=== PATIENT | male | born 1945 | race Hispanic/Latino ===

== ENCOUNTER 2019-01-16 14:47 | Inpatient (IN) | payer MEDICARE ==
[2019-01-16 15:08] VITALS: BMI 30.7
[2019-01-16] MEDS ORDERED: Sodium Chloride 0.9% 1,000 ML IV STA (15:36)
--- NOTE | 2019-01-16 15:44 | ED PDOC ---
Arrival/HPI - General Chief Complaint: Weakness/Neurological Deficit Historian: Patient - History of Present Illness Narrative History of Present Illness (Text): 01/16/19 15:34 A 73 year old male, whose past medical history includes hypertension and bronc hitis, presents to the ED complaining of worsening weakness for the past day. Patient reports he was eating a BLT sandwich yesterday when he started feeling weakness with associated diaphoresis, nausea and shakiness. Patient notes symptoms worsen upon standing up and improve when laying down. Patient also notes associated black stools and loss of appetite, but states that he ate breakfast today. Patient denies any fevers, headache, chest pain, shortness of breath, dyspnea on exertion, cough, abdominal pain, vomiting, diarrhea, back pain, neck pain, or any other complaints. Time/Duration: 24 hours Symptom Onset: Gradual Symptom Course: Worsening Activities at Onset: Light Context: Home Past Medical History - Provider Review Nursing Documentation Reviewed: Yes Primary Care Provider: Gustavo Patricia MD - Infectious Disease Hx of Infectious Diseases: None - Cardiac Hx Hypertension: Yes Hx Pacemaker: No - Pulmonary Hx Bronchitis: Yes - Neurological Hx Paralysis: No - Hematological/Oncological Hx Blood Transfusions: No - Musculoskeletal/Rheumatological Hx Musculoskeletal Disorders: No - Psychiatric Hx Emotional Abuse: No Hx Physical Abuse: No Hx Substance Use: No - Anesthesia Hx Anesthesia Reactions: No Hx Malignant Hyperthermia: No - Suicidal Assessment Feels Threatened In Home Enviroment: No Family/Social History - Physician Review Nursing Documentation Reviewed: Yes Family/Social History: Unknown Family HX Smoking Status: Unknown If Ever Smoked Hx Alcohol Use: Yes (ON OCCASION) Hx Substance Use: No Allergies/Home Meds Allergies/Adverse Reactions: Allergies No Known Allergies Allergy (Verified 01/16/19 14:58) Home Medications: Home Meds Medication Instructions Recorded Confirmed Garlic [Odor Free Garlic-X] 1 tab PO DAILY 03/07/16 01/16/19 Lecithin 1,200 mg PO DAILY 03/07/16 01/16/19 Losartan [Cozaar] 50 mg PO QAM 03/07/16 01/16/19 Metoprolol Succinate XL [Toprol XL] 50 mg PO QAM 03/07/16 01/16/19 Multivitamin [One Daily] 1 tab PO DAILY 03/07/16 01/16/19 [place]-3 Fatty Acids/Fish Oil 1 cap PO DAILY 03/07/16 01/16/19 [[place] 3 Fish Oil Softgel] Vitamin E 400 iu PO DAILY 03/07/16 01/16/19 Montelukast [Singulair] 10 mg PO DAILY 01/16/19 01/16/19 Review of Systems - Review of Systems Constitutional: absent: Fevers Eyes: absent: Vision Changes ENT: absent: Hearing Changes Respiratory: absent: SOB, Cough Cardiovascular: absent: Chest Pain Gastrointestinal: Stool Changes (Black stool), Nausea. absent: Abdominal Pain, Vomiting, Hematemesis Genitourinary Male: absent: Dysuria, Frequency Musculoskeletal: absent: Back Pain, Neck Pain Skin: absent: Rash Neurological: Dizziness. absent: Headache, Focal Weakness Endocrine: Diaphoresis Hemo/Lymphatic: absent: Adenopathy Psychiatric: absent: Anxiety, Depression Physical Exam - Physical Exam Narrative Physical Exam (Text): 01/16/19 15:46 Head: Atraumatic. Normocephalic. Eyes: PERRL. EOMI. Conjunctivae are pale. ENT: Mucous membranes are moist. Oropharynx is clear and symmetric. Neck: Supple. Full ROM. No JVD. No lymphadenopathy. Cardiovascular: Tachycardic. Systolic murmur. Distal pulses are 2+ and sy mmetric. Pulmonary/Chest: No evidence of respiratory distress. Clear to auscultation bilaterally. No wheezing, rales or rhonchi. Abdominal: Soft and non-distended. There is no tenderness. No rebound, guarding, or rigidity. No organomegaly. Good bowel sounds. No pulsatile masses. Back: No CVA tenderness. Rectal: dark melena Extremities: No edema. No cyanosis. No clubbing. Full range of motion in all extremities. No calf tenderness. Skin: Skin is pale. Neurological: Alert, awake, and oriented to person, place, time, and situation. Normal speech. Tremulous at times. Motor and sensory exam intact. Psychiatric: Good eye contact. Normal interaction, affect, and behavior. Vital Signs Reviewed: Yes Vital Signs Temp Pulse Resp BP Pulse Ox 01/16/19 15:03 98.5 F 106 H 18 122/66 99 Temperature: Afebrile Blood Pressure: Normal Pulse: Tachycardic Respiratory Rate: Normal Appearance: Positive for: Non-Toxic Pain Distress: Mild Mental Status: Positive for: Alert and Oriented X 3 Medical Decision Making ED Course and Treatment: 01/16/19 15:46 Impression: A 73 year old male who presents to the ED complaining of weakness since yesterday. Differential Diagnosis included but are not limited to: gi bleed, ulcer, colitis, not limited to this. Plan: -- VBG -- EKG -- Labs -- Chest X-Ray -- IV Fluids -- Protonix -- Urinalysis -- Reassess and disposition Progress Notes: 01/16/19 17:41 Patient with low hgb. Melenotic stool. No abdominal pain. After iv fluid bolus, blood pressure improved, heart rate improved. Hgb 8.2. Discussed labs with Dr. Livia Patricia, who states recent Hgb this year was 12. Suspect active gi bleed, requested ICU consultation. Dr. Tracey Leyva evaluated patient in emergency department , at this time he is cleared by submarine diver to telemetry bed. Currently he denies any chest pain or shortness of breath. He is not tachycardic or hypotensive. Blood trasnfusion ordered. WBC elevated although afebrile. No neuro deficits noted. Protonix ordered. I discussed case with Dr. Theresa North, GI, is aware of presentation. Consent obtained for blood transfusion obtained after risks/benefits reviewed. Reassessment Condition: Re-examined, Improving,but remains with symptoms - Critical Care Critical Care Minutes: 30 minutes - Scribe Statement The provider has reviewed the documentation as recorded by the Hiram Murphy Provider Scribe Attestation: All medical record entries made by the Scribe were at my direction and personally dictated by me. I have reviewed the chart and agree that the record accurately reflects my personal performance of the history, physical exam, medical decision making, and the department course for this patient. I have also personally directed, reviewed, and agree with the discharge instructions and disposition. Disposition/Present on Arrival - Present on Arrival Any Indicators Present on Arrival: No History of DVT/PE: No History of Uncontrolled Diabetes: No Urinary Catheter: No History of Decub. Ulcer: No History Surgical Site Infection Following: None - Disposition Have Diagnosis and Disposition been Completed?: Yes Diagnosis: Gastrointestinal bleeding, Dizziness, Leukocytosis Disposition: HOSPITALIZED Disposition Time: 16:00 Patient Plan: Admission, Telemetry Condition: SERIOUS
[2019-01-16 15:52] LABS: VENOUS BLOOD GAS BASE EXCESS -2.5 mmol/L (0.0-2.0); VENOUS BLOOD GAS PO2 33 mm/Hg (30-55); VENOUS BLOOD PH 7.37 (7.32-7.43)
[2019-01-16 16:00] LABS: BASO # 0.03 K/mm3 (0.0-2.0); BASO % 0.2 % (0.0-3.0); EOS % 0.3 % (1.5-5.0); HEMOGLOBIN 8.2 g/dL (14.0-18.0); LYMPH # 1.5 (1.2-3.4); LYMPH % 10.1 % (22.0-35.0); MEAN CELL VOLUME 96.2 fl (80.0-105.0); MEAN CORPUSCULAR HEMOGLOBIN 31.4 pg (25.0-35.0); MEAN CORPUSCULAR HGB CONC 32.7 g/dl (31.0-37.0); MEAN PLATELET VOLUME 9.3 fl (7.0-11.0); MONO # 1.1 (0.1-0.6); MONO % 6.9 % (1.0-6.0); RBC 2.61 10^6/uL (3.5-6.1); RED CELL DISTRIBUTION WIDTH 15.2 % (11.5-14.5); WHITE BLOOD COUNT 15.2 10^3/uL (4.5-11.0)
[2019-01-16 16:09] LABS: INR 1.21; PARTIAL THROMBOPLASTIN TIME 25.8 Seconds (26.9-38.3); PROTHROMBIN TIME 13.4 SECONDS (9.4-12.5)
[2019-01-16 16:13] LABS: ALB/GLOB RATIO 1.5 (1.1-1.8); ALBUMIN 3.6 g/dL (3.0-4.8); ALT/SGPT 21 U/L (7-56); AST/SGOT 21 U/L (17-59); BLOOD UREA NITROGEN 78 mg/dL (7-21); CALCIUM 9.1 mg/dL (8.4-10.5); GFR NON-AFRICAN AMERICAN 50; LIPASE 221 U/L (23-300)
[2019-01-16 16:21] LABS: TROPONIN I < 0.01 ng/mL
--- NOTE | 2019-01-16 17:12 | CP.PCM.CON ---
History of Present Illness - History of Present Illness History of Present Illness: MICU CONSULT Note HPI Patient is 73yo male with PMhx of HTN on Losartan, Bronchitis, Gout, NSAID use, presented to the ER with dizziness, and melena x 1 day. Pt notes symptoms began yesterday, and he has had 2 melena BM. Pt denies fever, chills, cough, CP, BRBPR. Pt did take ASA once this past week. Denies Plavix, DOAC, Warfarin use. No other constitutional symptoms. Labs, iamging, chart reviewed. HH 8.2, baseline not available. Last BP 122/60, P 80 PMhx HTN, Gout, Bronchitis PSHx NONE Meds as per EMR FHx NC Social Denies smoking, etoh, drug use Allergies NKDA ROS as above Review of Systems - Review of Systems Review of Systems: as per HPI Past Patient History - Infectious Disease Hx of Infectious Diseases: None - Past Social History Smoking Status: Unknown If Ever Smoked - CARDIAC Hx Hypertension: Yes Hx Pacemaker: No - PULMONARY Hx Bronchitis: Yes - NEUROLOGICAL Hx Paralysis: No - HEMATOLOGICAL/ONCOLOGICAL Hx Blood Transfusions: No - MUSCULOSKELETAL/RHEUMATOLOGICAL Hx Musculoskeletal Disorders: No - PSYCHIATRIC Hx Emotional Abuse: No Hx Physical Abuse: No Hx Substance Use: No - SURGICAL HISTORY Hx Surgeries: Yes - ANESTHESIA Hx Anesthesia Reactions: No Hx Malignant Hyperthermia: No Meds Allergies/Adverse Reactions: Allergies Allergy/AdvReac Type Severity Reaction Status Date / Time No Known Allergies Allergy Verified 01/16/19 14:58 Physical Exam - Constitutional Appears: Non-toxic, No Acute Distress - Head Exam Head Exam: NORMAL INSPECTION - Eye Exam Eye Exam: Normal appearance - ENT Exam ENT Exam: Mucous Membranes Moist - Neck Exam Neck exam: Positive for: Full Rom - Respiratory Exam Respiratory Exam: Clear to Auscultation Bilateral, NORMAL BREATHING PATTERN - Cardiovascular Exam Cardiovascular Exam: REGULAR RHYTHM, +S1, +S2 - GI/Abdominal Exam GI & Abdominal Exam: Normal Bowel Sounds, Soft - Extremities Exam Extremities exam: Positive for: normal inspection - Neurological Exam Neurological exam: Alert, Oriented x3 - Psychiatric Exam Psychiatric exam: Normal Affect - Skin Skin Exam: Normal Color, Warm Results - Vital Signs Recent Vital Signs: Last Vital Signs Temp 98.5 F 01/16/19 15:03 Pulse 106 H 01/16/19 15:03 Resp 18 01/16/19 15:03 BP 122/66 01/16/19 15:03 Pulse Ox 99 01/16/19 15:03 - Labs Result Diagrams: 01/16/19 15:54 01/16/19 15:54 Labs: Laboratory Results - last 24 hr 01/16/19 01/16/19 01/16/19 15:40 15:54 15:54 WBC 15.2 H RBC 2.61 L Hgb 8.2 L Hct 25.1 L MCV 96.2 MCH 31.4 MCHC 32.7 RDW 15.2 H Plt Count 245 MPV 9.3 Neut % (Auto) 82.5 H Lymph % (Auto) 10.1 L Brewster % (Auto) 6.9 H Eos % (Auto) 0.3 L Baso % (Auto) 0.2 Lymph # (Auto) 1.5 Brewster # (Auto) 1.1 H Eos # (Auto) 0.0 Baso # (Auto) 0.03 Absolute Neuts (auto) 12.57 H PT 13.4 H INR 1.21 APTT 25.8 L pO2 33 VBG pH 7.37 VBG pCO2 39.0 L VBG HCO3 22.5 VBG Total CO2 23.7 VBG O2 Sat (Calc) 54.8 VBG Base Excess -2.5 L VBG Potassium 5.0 Sodium 140.0 Chloride 112.0 H Glucose 114 H Lactate 2.0 FiO2 21.0 Potassium Carbon Dioxide Anion Gap BUN Creatinine Est GFR ( Amer) Est GFR (Non-Af Amer) Random Glucose Calcium Magnesium Total Bilirubin AST ALT Alkaline Phosphatase Lactate Dehydrogenase Total Creatine Kinase Troponin I Total Protein Albumin Globulin Albumin/Globulin Ratio Lipase Venous Blood Potassium 5.0 01/16/19 15:54 WBC RBC Hgb Hct MCV MCH MCHC RDW Plt Count MPV Neut % (Auto) Lymph % (Auto) Brewster % (Auto) Eos % (Auto) Baso % (Auto) Lymph # (Auto) Brewster # (Auto) Eos # (Auto) Baso # (Auto) Absolute Neuts (auto) PT INR APTT pO2 VBG pH VBG pCO2 VBG HCO3 VBG Total CO2 VBG O2 Sat (Calc) VBG Base Excess VBG Potassium Sodium 141 Chloride 109 H Glucose Lactate FiO2 Potassium 5.0 Carbon Dioxide 22 Anion Gap 15 BUN 78 H Creatinine 1.4 Est GFR ( Amer) > 60 Est GFR (Non-Af Amer) 50 Random Glucose 112 H Calcium 9.1 Magnesium 2.2 Total Bilirubin 0.2 AST 21 ALT 21 Alkaline Phosphatase 44 Lactate Dehydrogenase 375 Total Creatine Kinase 88 Troponin I < 0.01 Total Protein 6.1 Albumin 3.6 Globulin 2.5 Albumin/Globulin Ratio 1.5 Lipase 221 Venous Blood Potassium Assessment & Plan - Assessment and Plan (Free Text) Assessment: 73yo male a/w melena, Anemia, elevated BUN Melena/GIB Anemia HTN NSAID use - currently afebrile, HD stable, SBP ranging 110-130, HR 80s, in NAD - HH 8.2, no baseline comparison available - BUN elevated likely 2/2 dehydration and GIB - lactate is normal, 2.0 - clinically stable - platelets INR normal Recommend: - NPO - PPI drip - GI eval - Q6hr CBC - transfuse if HH<7 - maintain 2 large bore PIVs - HOLD BP meds - IVF, NS - obtain UA, Ulytes - DVT ppx, SCDs - Does not require ICU care at this time, re-consult as needed
[2019-01-16 18:50] LABS: URINE APPEARANCE CLEAR (CLEAR); URINE BILIRUBIN NEGATIVE (NEGATIVE); URINE BLOOD NEGATIVE (NEGATIVE); URINE COLOR LIGHT YELLOW (YELLOW); URINE GLUCOSE (UA) NEGATIVE (NEGATIVE); URINE LEUKOCYTE ESTERASE NEGATIVE Leu/uL (NEGATIVE); URINE PROTEIN NEGATIVE mg/dL (<30 mg/dL); URINE UROBILINOGEN 0.2 E.U./dL (<1 E.U./dL)
--- NOTE | 2019-01-16 18:59 | RAD ---
Date of service: 01/16/2019 HISTORY: Weakness. COMPARISON: 01/09/2018 FINDINGS: LUNGS: No active pulmonary disease. PLEURA: No significant pleural effusion identified, no pneumothorax apparent. CARDIOVASCULAR: No atherosclerotic calcification present No radiographic findings to suggest acute or significant cardiovascular disease. OSSEOUS STRUCTURES: No significant abnormalities. VISUALIZED UPPER ABDOMEN: Normal. OTHER FINDINGS: None. IMPRESSION: No active disease. No significant interval change compared to the prior examination(s).
[2019-01-16 20:09] LABS: VENOUS BLOOD GAS BASE EXCESS -5.3 mmol/L (0.0-2.0); VENOUS BLOOD GAS PO2 159 mm/Hg (30-55); VENOUS BLOOD PH 7.26 (7.32-7.43)
--- NOTE | 2019-01-16 22:07 | CARD ---
APPROVED REPORT Date of service: 01/16/2019 EKG Measurement Heart [id number] <Conclusion> Sinus tachycardia NDSTT abnormalities Otherwise normal ECG
[2019-01-16] MEDS ORDERED: Pneumococcal 23-Valent Vaccine IM ONE (23:18)
--- NOTE | 2019-01-17 03:01 | HP ---
DATE OF EXAM: 01/16/2019 HISTORY OF PRESENT ILLNESS: The patient is a 73-year-old male who presented to the office with a chief complaint of not feeling well and low blood pressure. He also mentioned that he had some black stools. On physical examination, the patient appeared to be anemic and he was sent to [facility] for a stat CBC. This showed that the patient is effectively anemic with a hemoglobin of 8.2. He was then admitted to the hospital for what appears to be an upper GI bleed. PAST MEDICAL HISTORY: Unremarkable for high blood pressure. FAMILY HISTORY: Noncontributory. SOCIAL HISTORY: The patient does not smoke or use illicit drugs. He does imbibe alcohol on occasion. ALLERGIES: NO KNOWN ALLERGIES. PHYSICAL EXAMINATION: VITAL SIGNS: Temperature of 98.5, pulse rate of 106, blood pressure 122/66, respiratory rate of 18 with an O2 saturation of 99% on room air. HEENT: PERRLA, EOMI. The sclerae are pale bilaterally. NECK: Supple with no bruits. HEART: Regular rate and rhythm. ABDOMEN: Soft, nontender. There is no organomegaly. No pain on palpation. EXTREMITIES: Show no deformities and no edema. There is a full range of motion. NEUROLOGICAL: There are no focal motor deficits. LABORATORY DATA: WBCs are 15.2, hemoglobin 8.2, hematocrit of 25.1. Of note, 6 months ago, the hemoglobin was in the 13 range. Chemistry is entirely within normal limits with the exception of a chloride of 109, a BUN of 78, and a creatinine of 1.4, which seems to indicate that this will be upper GI gastric bleed, and random glucose of 112. The patient was admitted. He will be transfused. Dr. North of GI will be consulted. IMPRESSION: At the time of admission: 1. Upper gastrointestinal bleed. 2. Anemia secondary to upper gastrointestinal bleed. 3. Hypertension. Quinten Patricia MD
[2019-01-17] MEDS: Sodium Chloride 0.9% 1,000 ML IV SCH (10:04)
--- NOTE | 2019-01-17 13:29 | PN ---
SUBJECTIVE: The patient was seen and examined at bedside on the telemetry jang. No acute events overnight. He is s/p transfusion of 2 units of PRBCs with no complications noted. He denies further bowel movements since admission and overall offers no complaints. OBJECTIVE: VITAL SIGNS: Temperature 98.6, pulse 95, blood pressure 168/70, respiratory rate 18, oxygen saturation 99% on 2 liters nasal cannula. GENERAL: No apparent distress. HEENT: PERRL, EOMI. No scleral icterus. Mild conjunctival pallor is noted. NECK: No JVD. No bruits. LUNGS: Clear to auscultation. CARDIOVASCULAR: Regular rate and rhythm. Normal S1 and S2. No murmurs. ABDOMEN: Normoactive bowel sounds, soft, nondistended, tender to palpation to epigastrium with voluntary guarding without rigidity. EXTREMITIES: No edema. NEUROLOGIC: Awake, alert and oriented x 3. No focal motor deficits. LABORATORY DATA: Morning labs are pending. ASSESSMENT: The patient is a 73-year-old man with a past medical history of hypertension who for evaluation of a several day history of malaise, fatigue, decreased exercise tolerance and melena and was admitted for management of symptomatic anemia suspected secondary to upper GI bleed. PLAN: 1. Symptomatic anemia, likely secondary to upper GI bleed. The patient is s/p transfusion of 2 units of PRBCs. A post-transfusion CBC is pending. GI evaluation with Dr. North is pending. Continue Protonix 40 mg IV every 12hours and IV fluids. Advance diet as per Dr. North. 2. Suspected upper GI bleed. As above, evaluation with Dr. North is pending. Continue with care as per #1. 3. Hypertension. Blood pressure stable. Resume Toprol XL 50 mg p.o. daily. We will continue to monitor hemodynamics and adjust medications as needed. 4. Prophylaxis. GI prophylaxis not indicated as the patient remains on Protonix. DVT prophylaxis not indicated as the patient remains ambulatory. CODE STATUS: Full Code. Gustavo Patricia MD [facility]
--- NOTE | 2019-01-17 15:34 | CON ---
DATE OF CONSULTATION: 01/17/2019 GASTROENTEROLOGY CONSULTATION REQUESTING PHYSICIAN: Dr. Gustavo Patricia. REASON FOR CONSULTATION: I have been asked to see this 73-year-old male with a history of gout, hypertension, and asthmatic bronchitis, who comes to the hospital with severe weakness, unsteady gait, and 2 days of melena. The patient was taking several Aleve for left knee pain and aspirin for headaches. In the emergency room, the patient was found to be anemic with a hemoglobin of 8.2. He also had a BUN of 78 with a creatinine of 1.4. He has not had any further bowel movements in the hospital. He feels better without any further weakness or dizziness. He denies any abdominal pain, chest pain, shortness of breath, or palpitations. PAST MEDICAL HISTORY: Notable for hypertension, gout, and bronchitis. PAST SURGICAL HISTORY: Unremarkable. SOCIAL HISTORY: He denies cigarette smoking or alcohol use. FAMILY HISTORY: Noncontributory. REVIEW OF SYSTEMS: Fourteen-point review of systems is notable for melena, generalized weakness, and lightheadedness. MEDICATIONS: Medications at home include vitamin E, omega-3, multivitamin, montelukast, metoprolol, losartan,and garlic. PHYSICAL EXAMINATION: GENERAL: Well-developed male, lying in bed, in no acute distress. VITAL SIGNS: Revealed a temperature of 98.6, blood pressure 168/70, heart rate 95. HEENT: Reveals sclerae to be white. Conjunctivae pink. NECK: Supple. CHEST: Revealed lungs to be clear. HEART: Exam reveals regular rate and rhythm. ABDOMEN: Soft, nontender. No mass. EXTREMITIES: Show no edema. LABORATORY DATA: Revealed BUN 78, creatinine 1.4. AST, ALT, alk phos were all normal. Coags reveal PT 13.4, INR 1.21. CBC shows hemoglobin of 8.2, white blood cell count of 15.2. He received 2 units of packed red blood cells. IMPRESSION: A 73-year-old male, comes to the emergency room with severe weakness, lightheadedness, unsteady gait, melena, anemia, all consistent with an upper gastrointestinal bleed, probably related to his aspirin and nonsteroidal use. Symptomatically, he has improved. RECOMMENDATIONS: 1. I will start the patient on clear liquid diet. 2. Follow serial hematocrits. 3. Follow BUN. 4. Continue Protonix 40 mg IV twice a day. As the patient is hemodynamically stable, I will defer an upper endoscopy until Saturday morning unless the patient has signs of active gastrointestinal bleeding. Oswaldo North MD [facility]
[2019-01-18] MEDS: Sodium Chloride 0.9% 1,000 ML IV SCH ×3 (04:50→17:21)
[2019-01-18 07:39] LABS: BASO # 0.04 K/mm3 (0.0-2.0); BASO % 0.4 % (0.0-3.0); EOS # 0.5 (0.0-0.7); EOS % 5.5 % (1.5-5.0); HEMOGLOBIN 8.6 g/dL (14.0-18.0); LYMPH # 2.3 (1.2-3.4); LYMPH % 24.6 % (22.0-35.0); MEAN CELL VOLUME 96.5 fl (80.0-105.0); MEAN CORPUSCULAR HEMOGLOBIN 30.4 pg (25.0-35.0); MEAN CORPUSCULAR HGB CONC 31.5 g/dl (31.0-37.0); MEAN PLATELET VOLUME 9.5 fl (7.0-11.0); MONO % 10.7 % (1.0-6.0); RBC 2.83 10^6/uL (3.5-6.1); RED CELL DISTRIBUTION WIDTH 15.9 % (11.5-14.5); WHITE BLOOD COUNT 9.5 10^3/uL (4.5-11.0)
[2019-01-18 08:57] LABS: ALB/GLOB RATIO 1.5 (1.1-1.8); ALBUMIN 3.8 g/dL (3.0-4.8); ALT/SGPT 30 U/L (7-56); AST/SGOT 34 U/L (17-59); BLOOD UREA NITROGEN 20 mg/dL (7-21); CALCIUM 8.4 mg/dL (8.4-10.5); GFR NON-AFRICAN AMERICAN > 60
[2019-01-18] MEDS: Metoprolol Succinate 50 mg XL Tab PO SCH (09:02)
--- NOTE | 2019-01-18 13:15 | PN ---
DATE: 01/18/2019 SUBJECTIVE: The patient is a 73-year-old white male who is currently in room 271, bed 1. He is lying comfortably in bed and has no complaints at this time. There has been no acute events overnight and review of systems is entirely unremarkable. The patient says he feels quite a bit stronger after the transfusions. LABORATORY DATA: WBC of 9.5, hemoglobin and hematocrit of 8.6 and 27.3. Chemistry; the SMA-23 is entirely unremarkable with the exception of a chloride of 110. PHYSICAL EXAMINATION: VITAL SIGNS: Temperature of 98.1, pulse rate of 72, blood pressure 114/68 with a respiratory rate of 20 and O2 saturation of 96% on room air. HEENT: PERRLA, EOMI. There is no icterus present. The sclera is pink 2 days ago. NECK: Supple with full range of motion. No adenopathy or bruits are appreciated. LUNGS: Clear to auscultation and percussion bilaterally. HEART: With regular rate and rhythm. No murmurs, rubs or gallops. ABDOMEN: Soft, nontender. There is no organomegaly. The bowel sounds are normoactive. EXTREMITIES: Show no deformities or edema. NEUROLOGIC: There are no focal motor deficits. IMPRESSION: At this time is; 1. Anemia secondary to upper gastrointestinal bleeding. 2. Hypertension. 3. Gout. The patient will be scoped tomorrow by Dr. North and further interventions depending on the results of the endoscopy. Quinten Patricia MD
[2019-01-19 07:20] LABS: BASO # 0.04 K/mm3 (0.0-2.0); BASO % 0.4 % (0.0-3.0); EOS # 0.6 (0.0-0.7); EOS % 5.3 % (1.5-5.0); HEMOGLOBIN 9.3 g/dL (14.0-18.0); LYMPH # 2.5 (1.2-3.4); LYMPH % 23.9 % (22.0-35.0); MEAN CORPUSCULAR HEMOGLOBIN 30.6 pg (25.0-35.0); MEAN CORPUSCULAR HGB CONC 31.5 g/dl (31.0-37.0); MEAN PLATELET VOLUME 9.4 fl (7.0-11.0); MONO # 0.9 (0.1-0.6); MONO % 8.2 % (1.0-6.0); RBC 3.04 10^6/uL (3.5-6.1); RED CELL DISTRIBUTION WIDTH 15.7 % (11.5-14.5); WHITE BLOOD COUNT 10.6 10^3/uL (4.5-11.0)
[2019-01-19 07:49] LABS: ALB/GLOB RATIO 1.5 (1.1-1.8); ALBUMIN 3.8 g/dL (3.0-4.8); ALT/SGPT 39 U/L (7-56); AST/SGOT 37 U/L (17-59); BLOOD UREA NITROGEN 12 mg/dL (7-21); CALCIUM 8.5 mg/dL (8.4-10.5); GFR NON-AFRICAN AMERICAN > 60
[2019-01-19] MEDS: Metoprolol Succinate 50 mg XL Tab PO SCH (08:21)
[2019-01-19] MEDS: Sodium Chloride 0.9% 1,000 ML IV SCH (09:46)
--- NOTE | 2019-01-19 10:42 | PN ---
SUBJECTIVE: The patient was seen and examined at bedside on the general medical jang. No acute events overnight. He remains afebrile and hemodynamically stable. The patient is pending EGD later today. OBJECTIVE: VITAL SIGNS: Temperature 97.8, pulse 79, blood pressure 131/87, respiratory rate 20, oxygen saturation 97% on room air. GENERAL: No apparent distress. HEENT: PERRL, EOMI. No scleral icterus. Mild conjunctival pallor is noted. NECK: No JVD. No bruits. LUNGS: Clear to auscultation. CARDIOVASCULAR: Regular rate and rhythm. Normal S1, S2. No murmurs. ABDOMEN: Normoactive bowel sounds, soft, nontender, nondistended. EXTREMITIES: No edema. NEUROLOGIC: Awake, alert and oriented x 3. No focal motor deficits. LABORATORY DATA: WBC 10.6, hemoglobin 9.3, hematocrit 29, platelets 246. Chemistry reviewed and unremarkable. ASSESSMENT: The patient is a 73-year-old man with a past medical history of hypertension who presented for evaluation of a several day history of malaise, fatigue, decreased exercise tolerance and melena and was admitted for management of symptomatic anemia suspected secondary to upper GI bleed. PLAN: 1. Symptomatic anemia, likely secondary to upper GI bleed. Input from Dr. North noted and the patient is pending EGD later today. Continue Protonix 40 mg IV every 12 hours. Continue to monitor CBC and transfuse as needed. 2. Suspected upper GI bleed. Continue with care as per #1. 3. Hypertension. Blood pressure remained stable. Continue Toprol-XL 50 mg p.o. daily. 4. Prophylaxis. GI prophylaxis not indicated as pain remains on Protonix. DVT prophylaxis not indicated as the patient remains ambulatory. CODE STATUS: Full code. Gustavo Patricia MD MTDMegan
[2019-01-19 10:53] VITALS: RESP 18; TEMP 98; O2SAT 98
[2019-01-19] MEDS ORDERED: Propofol 10 mg/ml Inj (20 ML) ONE (11:22)
[2019-01-19] MEDS ORDERED: Midazolam 2 MG/2 ML VIAL ONE (11:22)
[2019-01-19] MEDS ORDERED: Sodium Chloride 0.9% 1,000 ML IV SCH (12:00)
[2019-01-19 12:08] VITALS: PULSE 83
[2019-01-19 12:24] VITALS: BP 150/80
[2019-01-19] MEDS ORDERED: Pneumococcal 23-Valent Vaccine IM ONE (15:03)
[2019-01-19] MEDS ORDERED: Pantoprazole 40 mg EC Tab PO SCH (16:00)
--- NOTE | 2019-01-20 06:21 | DS ---
ADMITTING DIAGNOSIS: Symptomatic anemia likely secondary to upper GI bleed. DISCHARGE DIAGNOSIS: Symptomatic anemia secondary to upper GI bleed secondary to multiple gastric ulcers. SECONDARY DIAGNOSES: Hypertension and gout. CONSULTATIONS: Dr. North (Gastroenterology). IMAGING STUDIES: 1. Chest x-ray demonstrated no acute pathology. DIAGNOSTIC STUDIES: None. PROCEDURES: 1. EGD demonstrated a nonobstructing Schatzki ring and multiple gastric ulcers with no stigmata of active bleed. HISTORY OF PRESENT ILLNESS: The patient is a 73-year-old man with a past medical history of hypertension and gout who presented for evaluation of a several day history of malaise, fatigue, decreased exercise tolerance and melena. The patient was in his usual state of health until approximately 7 days prior to presentation when he developed the aforementioned symptoms. Over the next several days he became increasingly more fatigued and also reported lightheadedness with positional changes. On the day prior to presentation to the ED he had 2 episodes of melena which prompted his ED visit. Of note, the patient has been taking large amounts of NSAIDs for relief of his gout pain. In the ED he was afebrile and hemodynamically stable. Laboratory studies demonstrated a hemoglobin of 8.2. The patient was typed and crossmatched for 2 units of PRBCs and subsequently admitted for continued management of symptomatic anemia and GI evaluation. HOSPITAL COURSE: Upon admission to the telemetry jang he was started on Protonix 40 mg IV q. 12 hours and maintained n.p.o. He was evaluated by Dr. North and was scheduled for an endoscopy.. The patient was transfused 2 units of PRBCs with an appropriate response in hemoglobin and had no further episodes of overt blood loss during his hospital stay. He was taken to the endoscopy suite with Dr. North with the findings described above. No postprocedure complications were noted and as such the patient was cleared for discharge by Dr. North. CONDITION: Fair, improved. DISPOSITION: Home. DISCHARGE MEDICATIONS: Toprol XL 50 mg p.o. daily, Protonix 40 mg p.o. b.i.d., Singulair 10 mg p.o. daily and [place]-3 fatty acids 1000 mg p.o. b.i.d. DISCHARGE INSTRUCTIONS: The patient was advised to refrain from NSAID use and adhere to postprocedure instructions as per Dr. North. He was also advised that if he has any recurrence of his symptoms to present to his PMD or to the nearest ED immediately. FOLLOWUP: The patient to follow up with his PMD within 1 week of discharge. The patient to follow up with Dr. North as scheduled. Gustavo Patricia MD MTDD
== END 2019-01-19 16:17 | disposition home or self-care (01) | DRG 379 ==
LOC: ED 14:47 → ERH 16:50 → 2RSO 22:06
PROVIDERS: ADMIT Internal Medicine; ATTEND Internal Medicine
PROC: 30233N1 Transfusion of Nonautologous Red Blood Cells into Peripheral Vein, Percutaneous Approach (ICD-10-PCS; 2019-01-16)
PROC: 0DB98ZX Excision of Duodenum, Via Natural or Artificial Opening Endoscopic, Diagnostic (ICD-10-PCS; 2019-01-19)
PROC: 0DB68ZX Excision of Stomach, Via Natural or Artificial Opening Endoscopic, Diagnostic (ICD-10-PCS; principal; 2019-01-19 11:00)
DX: K92.1 Melena (principal); D50.0 Iron deficiency anemia secondary to blood loss (chronic); K25.9 Gastric ulcer, unspecified as acute or chronic, without hemorrhage or perforation; K31.7 Polyp of stomach and duodenum; K22.2 Esophageal obstruction; I10 Essential (primary) hypertension; E86.0 Dehydration; M10.9 Gout, unspecified